=== PATIENT | female | born 1950 | race Caucasian/White ===

== ENCOUNTER 2019-06-24 09:23 | Inpatient (IN) ==
--- OUTSIDE RECORDS SUMMARY | 2019-06-24 09:26 | External Medical Summary | Continuity of Care Document ---
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 Refills: 0 traMADol HCl - 50 MG Oral Tablet , M.DRobby Start: 11-Mar-2012 Refills: 0 Myrbetriq 50 MG Oral Tablet Extended Release 24 Hour; Take 1 tablet daily Martha Webb Start: 03-Aug-2016 Quantity: 90 Refills: 3 amLODIPine Besy-Benazepril HCl - 5-20 MG Oral Capsule , M.DRobby Refills: 0 Zolpidem Tartrate 10 MG Oral Tablet , M.D. Refills: 0 Latanoprost 0.005 % Ophthalmic Solution , M.D. Refills: 0 Procedures History of Tonsillectomy Status: Complet ed History of Diagnostic Cystoscopy Status: Completed History of Hysterectomy Status: Complete d History of Dilation And Curettage Status : Completed Immunizations Immunizations not documented Family History Unknown Family Member Family history of Heart Disease (V17.49) Status: Active Comments: Family History Family history of Mother At Age ___ Status: Active Comments: Family History Family history of Hypertension (V17.49) Status: Active Comments: Family History Grandmother Family history of Hypertension (V17.49) Status: Active Father Family history of prostate cancer (V16.42) (Z80.42) Status: Active Mother Family history of malignant neoplasm of breast (V16.3) (Z80. 3) Status: Active Social History - Smoking Status Former smoker Never smoker Plan of Treatment Planned Observations Planned Goals not documented Results No Known Results Results not documented
[2019-06-24] MEDS ORDERED: SODIUM CHLORIDE 0.9% 500 ML IV SCH (09:45)
[2019-06-24 10:11] LABS: Hematocrit (blood only) 19.3 % (37-47); Hemoglobin 5.2 g/dL (12.0-16.0); Mean Corpuscular Hemoglobin 15.8 pg (25-34); Mean Corpuscular Hgb Conc 26.9 g/dL (32-36); Mean Corpuscular Volume 58.7 fL (80-100); Mean Platelet Volume 8.8 fL (7.4-10.4); Partial Thromboplastin Ratio 0.8; Partial Thromboplastin Time 21.1 Seconds (21.0-31.0); Platelet Count 269 K/uL (130-400); Prothrombin Time 10.4 Seconds (9.0-12.0); RDW Coefficient of Variation 18.2 % (11.5-14.5); RDW Standard Deviation 39.3 fL (36.4-46.3); Red Blood Count 3.29 M/uL (4.2-5.4); White Blood Count 5.51 K/uL (4.8-10.8)
[2019-06-24 10:18] LABS: Albumin Level 3.2 gm/dl (3.4-5.0); Bilirubin Direct < 0.1 mg/dl (0-0.2); Blood Urea Nitrogen 10 mg/dl (7-18); Carbon Dioxide 25 mmol/L (21-32); Chloride 106 mmol/L (98-107); Glucose 113 mg/dl (70-99); Lipase 133 U/L (73-393); Potassium 3.9 mmol/L (3.5-5.1); Sodium 137 mmol/L (136-145)
[2019-06-24 10:19] LABS: Alanine Aminotransferase 24 U/L (12-78); Aspartate Aminotransferase 24 U/L (15-37); BUN Creatinine Ratio 12.1 (10-20); Creatinine Clr Calc Pharmacy 52.8 ml/min; Est GFR (African American) 85.3; Est GFR (Non-African American) 73.6
[2019-06-24 10:21] LABS: Basophils # (auto) 0.02 K/uL (0-0.2); Basophils % (auto) 0.4 %; Eosinophils # (auto) 0.09 K/uL (0-0.5); Eosinophils % (auto) 1.6 %; Hypochromasia Present; Immature Granulocytes # (auto) 0.01 K/uL (0.00-0.02); Immature Granulocytes % (auto) 0.2 %; Lymphocytes # (auto) 1.01 K/uL (1.2-3.4); Lymphocytes % (auto) 18.3 %; Microcytosis Present; Monocytes # (auto) 0.44 K/uL (0.11-0.59); Neutrophils # (auto) 3.94 K/uL (1.4-6.5); Neutrophils % (auto) 71.5 %
[2019-06-24 10:22] LABS: Alkaline Phosphatase 105 U/L (45-117); Bilirubin,Total 0.3 mg/dl (0.2-1); Total Protein 6.1 gm/dl (6.4-8.2)
[2019-06-24] MEDS ORDERED: SODIUM CHLORIDE 0.9% 250 ML IV PRN (10:29)
--- NOTE | 2019-06-24 10:40 | History & Physical Report ---
Date of Service June 24, 2019 Assessment & Plan (1) Anemia: - Admit to PCU - Hgb = 5.2, Hct= 19.3, MCV = 58.7, MHC= 15.8, and MCHC= 26.9 - will check iron studies including ferritin, transferrin sat, TIBC - Type and cross, blood consent obtained in the ER, plan to transfuse at least 2 U PRBCs now, recheck H&H at 1900 after transfusion - Possibly a gastritis from heavy NSAID use and alcohol use (using 6 naproxen tablets daily and drinking alcohol routinely with 4 beers 4x per week) - Gi consult, may require EGD with likely upper GIB - Start on protonix 40 mg IV BID - Last colonoscopy was 5-6 yrs ago, was done in [place] - No NSAIDs, will need further counseling on taking them appropriately at time of discharge. (2) Tachycardia: - Likely secondary to acute blood loss anemia - Monitor on tele - Follow serial troponins to ensure no cardiac changes, EKG appears tachycardic with PVCs - Murmer heard on exam, consider Echo after transfusion. (3) HTN (hypertension): - Continue amlodipine-benazepril daily (4) Alcohol use: - Cessation encouraged, continue multivitamin daily - Monitor for signs of withdrawal but unlikely with not drinking much due to recent URI. (5) Anxiety: - stable, uses zolpidem for sleep (6) Bilateral leg edema: - New onset - bilateral in ankles, no calf tenderness so not concerned for DVT - Monitor, possible venous insufficiency (7) DVT prophylaxis: -teds, no chemical ppx in the setting of GIB History of Present Illness Primary Care Provider: Fili Mendoza Mitchjd This is a 69 yo F with PMHx of HTN, anxiety, chronic cystitis, who presents from her PCPs office for findings of low hemoglobin of 5.5 on yesterday's outpatient labs. She reports had been sick with URI for about 3 weeks and had the typical sx including sore throat, headache, cough, fatigue and myalgias which she was treated with amoxicillin x 5 days. She started the abx about 1 wk ago, and within a few days developed a rash over her trunk which was very itchy. She reports being outside and working a lot in the past month, so thought her fatigue was due to this. She was seen by her PCP again yesterday where he did blood work to test for other causes and was found to have low hgb and was sent to the ER. She admits to having darker stools, but denies blood streaking, tarry stools, and BRBPR. Admits to fatigue and feeling short of breath when walking up a flight of stairs. Last colonoscopy was in [place] about 5-6 years ago and was normal per her report. She Pt admits to taking 6 naproxen tablets on a daily basis due to muscle aches and pains, and I confirmed that she does not mean ibuprofen. She also notes that she typically drinks 4 beers at a time, 4x per week, but has been a little less in the past 3 weeks due to not feeling quite up to par. She lives at home alone independently. Hgb = 5.2, Hct= 19.3, MCV = 58.7, MHC= 15.8, and MCHC= 26.9 Allergies Allergy/AdvReac Type Severity Reaction Status Date / Time Cipro Allergy Unknown itching Verified 11/25/14 06:09 ciprofloxacin Allergy Unknown itching Verified 06/24/19 11:23 Home Medications Home Medications Medication Instructions Recorded Confirmed Type amlodipine-benazepril 1 cap PO DAILY 06/24/19 06/24/19 History latanoprost 1 drp OPB DAILY 06/24/19 06/24/19 History kexpcckk-hcju-VH-calcium-mins 1 tab PO DAILY 06/24/19 06/24/19 History [Daily Multiple For Women] naproxen sodium [Aleve] 220 mg PO DAILY 06/24/19 06/24/19 History tramadol 50 mg PO Q6H 06/24/19 06/24/19 History zolpidem 10 mg PO HS 06/24/19 06/24/19 History Past Med/Surg History Medical History UTI (urinary tract infection) Family History Other Family history non-contributory Social History Preferred Language: Italian Communication Ability: Effective Local [employer] Required: No Beliefs That Will Affect Care: None Current Living Situation: Alone Other Information That Helps Us Care for You: No Feels Safe at Home: Yes Safety Concerns: Feels Safe At This Time Smoking Status: Never smoker Do You Dip or Chew Tobacco: No ; Second Hand Exposure: No ; Tobacco Cessation Education Requested by Patient: No Hx Alcohol Use: Yes Hx Substance Use: No Review of Systems Review of Systems: Constitutional: No fever, sweats or chills, + myalgia Eyes: No diplopia, no worsening or blurred vision ENT: normal hearing, no trouble swallowing Respiratory: No cough, sputum, dyspnea at rest or on exertion Cardiovascular: No chest pain, tightness or palpitations Abdomen: No pain, nausea, vomiting. + darkened stools, no BRBPR, no diarrhea or constipation Musculoskeletal: + diffuse joint pain, + new onset lower extremity swelling, no calf pain Neurologic: No weakness, numbness/tingling, or balance problems Psychiatric: + hx of anxiety or depression Skin: No rash, itch resolved since stopping antibiotic Physical Exam Physical Exam: General: awake, alert, no apparent distress Head: Normocephalic, atraumatic ENT: PERRL, EOMI, no pharyngeal exudate, mucous membranes moist Chest: Clear to auscultation, on room air, no adventitious breath sounds Cardiac: +tachycardic with PVCs, +TORSTEN, no JVD, normal peripheral pulses, good capillary refill Abdominal: NABS x 4 quadrants, soft, nontender to palpation, no rebound, guarding or tenderness Extremities: Normal inspection, + peripheral edema nonpitting in ankles bilaterally, no erythema, calfs nontender to palpation Psych: Normal mood and affect Skin: no rash Neuro: AAO x 3, no motor deficits, speech is clear, no peripheral sensory deficits Results & Data Vital Signs (Past 12 Hours) Vital Signs Temp Pulse Pulse Resp BP BP Pulse Ox 06/24/19 10:00 104 H 17 139/76 98 06/24/19 09:26 37.0 C 125 H 20 145/69 H 99 Diagnostic Findings 24-JUN-2019 09:55:45 [facility]-EDSTAT ROUTINE RETRIEVAL Sinus tachycardia with frequent Premature ventricular complexes Otherwise normal ECG When compared with ECG of 15-OCT-2014 12:06, Premature ventricular complexes are now Present 25mm/s 10mm/mV 150Hz 9.0.9 12SL 241 SUNDAY: 11 Referred by: Fili Salinas Unconfirmed Vent. rate 102 BPM VT interval 138 ms QRS duration 72 ms QT/QTc 330/430 ms P-R-T axes 48 13 40 Code Status & VTE Plan Code Status Full code - discussed with pt and friend at bedside Supervising Physician Co-Signing Physician Notes Patient seen and examined, chart reviewed, case discussed with MARY ANN Bernard and I agree with her assessment and plan as documented above. Briefly patient is a 69-year-old female with history of anxiety, hypertension, frequent alcohol use presenting with symptomatic anemia. Was seen by her PCP and had routine blood work performed which revealed a low hemoglobin of 5.5. Patient denies melena/hematochezia/hematuria. Denies bleeding gums/bruising and vaginal bleeding. She is taking high doses of Aleve daily. On exam she is afebrile, regular tachycardia at 107 bpm with frequent PVCs, no respiratory distress saturating 100% on room air General: Pleasant, no acute distress, nontoxic in appearance Skin: + Pallor, no rashes/lesions HEENT: Normocephalic atraumatic, pupils equal round reactive to light, conjunctival pallor, neck supple, moist oral mucosa with pallor Heart: S1-S2 present, regular, tachycardic at 107 bpm with frequent PVCs, 3/6 systolic ejection murmur across the precordium Lungs: CTA Abdomen: + Bowel sounds soft, nontender/nondistended, no epigastric discomfort Extremities: Warm, well-perfused, 2+ pulses, + edema Rectal exam as performed by ER attendingnegative Labs and images reviewed. Significant for microcytic hypochromic anemia with hemoglobin = 5.2, hematocrit = 19.3, MCV = 58.7, MCH = 15.8 1+ blood on UA Assessment/plan: 69-year-old female presenting with symptomatic microcytic anemia. No overt source of blood loss identified. At this point suspect low blood loss most likely from an upper GI source in the setting of alcohol use and Aleve. -Iron studies requested in the ER as well as peripheral smear prior to transfusion -Patient to be transfused 2 units PRBCs -Repeat hemoglobin at 1900 -Protonix 40 mg IV twice daily -GI consult for possible EGD -Remainder of plan as above PG Care Time/CCT Total # of Minutes Spent Total Time Spent with Patient: Total time spent is greater than 50% in coordination of care (as documented) at patient's floor/unit and/or counseling patient:
[2019-06-24 10:50] LABS: Appearance Urine Clear (Clear); Bacteria Urine Automated Negative (Negative); Bilirubin Urine Negative (Negative); Blood Urine 1+ (Negative); Color Urine Yellow; Epithelial Cell Urine Auto 20-30 /lpf (0-5); Glucose Urine UA Negative (Negative); Ketones Urine Negative (Negative); Leukocyte Esterase Urine 1+ (Negative); Nitrite Urine Negative (Negative); Protein Urine Negative (Negative); Specific Gravity Urine 1.016 (1.000-1.030); Urobilinogen Urine Negative (Negative); WBC Urine Automated >30 /hpf (0-5); pH Urine 6.5 (4.5-7.5)
[2019-06-24 10:57] LABS: Reticulocyte % 1.7 % (0.5-2.0); Reticulocytes # 0.06 10^6/uL (0.02-0.10)
[2019-06-24] MEDS ORDERED: PANTOprazole 40 MG in SYRINGE 0 ML IV SCH (11:30)
[2019-06-24 11:36] LABS: Total Iron Binding Capacity 451 mcg/dl (250-450); Transferrin 340 mg/dl (200-360)
[2019-06-24 12:14] LABS: Ferritin 2.4 ng/ml (8-388); Iron 10 mcg/dl (35-150); Transferrin Percent Saturation 2 % (15-50)
[2019-06-24] MEDS ORDERED: ACETAMINOPHEN 325 MG TAB PO PRN (13:18)
[2019-06-24 14:35] LABS: T3 Free 4.39 pg/ml (2.3-4.2); T4 Thyroxine 8.1 mcg/dl (4.5-10.9)
[2019-06-24 14:36] LABS: Lyme Ab IgG w/WB Rflx Negative (Negative)
[2019-06-24 14:38] LABS: Lyme Ab IgM w/WB Rflx Negative (Negative)
--- NOTE | 2019-06-24 14:39 | Emergency Department Note ---
Entered by Ga Russo acting as a scribe for Chemo Crooks History of Present Illness General Chief complaint: Abnormal Labs/Diagnostic Testing Stated complaint: doc ref. low blood count Time Seen by Provider: 06/24/19 09:30 Source: patient History of Present Illness Provider complaint: Abnormal labs Onset (ago): day(s) 1 Location: head Pain Consistency: + constant Relieved By: + none Exacerbated By: + none Associated symptoms: + denies other symptoms (Urinary symptoms, abdominal pain, hematochezia, melena) and + other (Fatigue) The patient is a 69 year old female who presents to the Emergency Room after having abnormal labs drawn in [place] yesterday. The patient states she had the blood drawn yesterday but was just notified this morning with the results. Her labs showed that she was anemic with her hemoglobin around 5, but the patient notes she does not remember the exact number. The patient mentioned that she had just gotten over an upper respiratory infection but has been otherwise healthy. The patient reports feeling excessively fatigued and tired but denies any hematochezia, melena, abdominal pain, or urinary symptoms. Home Medications Home Medications Medication Instructions Recorded Confirmed Type amlodipine-benazepril 1 cap PO DAILY 06/24/19 06/24/19 History latanoprost 1 drp OPB DAILY 06/24/19 06/24/19 History jfddbapn-xetw-ZJ-calcium-mins 1 tab PO DAILY 06/24/19 06/24/19 History [Daily Multiple For Women] naproxen sodium [Aleve] 220 mg PO DAILY 06/24/19 06/24/19 History tramadol 50 mg PO Q6H 06/24/19 06/24/19 History zolpidem 10 mg PO HS 06/24/19 06/24/19 History Allergies Allergy/AdvReac Type Severity Reaction Status Date / Time Cipro Allergy Unknown itching Verified 11/25/14 06:09 ciprofloxacin Allergy Unknown itching Verified 06/24/19 11:23 Past Med/Surg History Medical History UTI (urinary tract infection) Family History Other Family history non-contributory Social History Preferred Language: Turkish Communication Ability: Effective Possum Trapper Required: No Beliefs That Will Affect Care: None Current Living Situation: Alone Other Information That Helps Us Care for You: No Feels Safe at Home: Yes Safety Concerns: Feels Safe At This Time Smoking Status: Never smoker Do You Dip or Chew Tobacco: No ; Second Hand Exposure: No ; Tobacco Cessation Education Requested by Patient: No Hx Alcohol Use: Yes Hx Substance Use: No Review of Systems See HPI for pertinent positives & negatives. and A total of 10 systems reviewed and were otherwise negative Physical Exam Vital Signs Vital Signs - 24 hr 06/24/19 09:26 06/24/19 10:00 06/24/19 10:40 Temperature 37.0 C Temperature Source Oral Sepsis Recent Fever Within 48 Hours No Sepsis New/Unexplained Change in Mental Status No Sepsis Action Taken by Nursing No Action Required Pulse Rate 125 H Pulse Rate [Apical] 104 H 105 H Pulse Rate from SpO2 Sensor Pulse Rhythm Regular Pulse Rhythm [Apical] Irregular Irregular Pulse Strength Normal Respiratory Rate 20 17 18 Respiratory Effort / Characteristics Non-Labored Spontaneous Non-Labored Non-Labored Respiratory Depth Normal Normal Normal Respiratory Pattern Regular Regular Regular Blood Pressure 145/69 H Blood Pressure [Left Arm] 139/76 140/81 Blood Pressure Mean 94 Blood Pressure Mean [Left Arm] 97 100 Blood Pressure Position Sitting Blood Pressure Position [Left Arm] Sitting Sitting Pulse Oximetry 99 98 100 Oxygen Delivery Method Room Air Room Air Room Air 06/24/19 11:08 06/24/19 11:09 Temperature 37.1 C Temperature Source Oral Sepsis Recent Fever Within 48 Hours Sepsis New/Unexplained Change in Mental Status Sepsis Action Taken by Nursing Pulse Rate 104 H 103 H Pulse Rate [Apical] Pulse Rate from SpO2 Sensor 105 H Pulse Rhythm Regular Pulse Rhythm [Apical] Pulse Strength Respiratory Rate 19 20 Respiratory Effort / Characteristics Respiratory Depth Respiratory Pattern Blood Pressure 141/66 H 141/66 H Blood Pressure [Left Arm] Blood Pressure Mean 91 91 Blood Pressure Mean [Left Arm] Blood Pressure Position Blood Pressure Position [Left Arm] Pulse Oximetry 99 100 Oxygen Delivery Method Room Air GENERAL: She is oriented to person, place, and time. She appears well-developed and well-nourished. She does not appear distressed. HENT: Exam performed. Head: Normocephalic and atraumatic. Right Ear: External ear normal. No mastoid tenderness. Left Ear: External ear normal. No mastoid tenderness. Mouth/Throat: The oropharynx is clear and moist. No trismus in the jaw. No dental abscesses or uvula swelling. No oropharyngeal exudate or tonsillar abscesses. EYES: Conjunctivae and EOM are normal. Pupils are equal, round, and reactive to light. Right eye exhibits no discharge. Left eye exhibits no discharge. No scleral icterus. NECK: Normal range of motion. Neck supple. No JVD present. No spinous process tenderness present. No carotid bruit present. No rigidity. No tracheal deviation and normal range of motion present. No Brudzinski's sign and no Kernig's sign noted. CV: Normal rate, regular rhythm, normal heart sounds and intact distal pulses. There is no peripheral edema. Palpable radial pulses bue. PULM/CHEST: Effort normal and breath sounds normal. No respiratory distress. No stridor. She has no wheezes. She has no rales. Chest Wall: She exhibits no tenderness. ABD: The abdomen is soft. Bowel sounds are normal. She has no distension. No mass is present. There is no tenderness. There is no rebound, no guarding, no Savage's sign and no tenderness at McBurney's point. Rovsig negative RECTAL: Heme negative. MUSC/SKEL: Normal range of motion. There is no peripheral edema, tenderness or deformity. LYMPH: No cervical adenopathy. NEURO: She is alert and oriented to person, place, and time. She has normal s trength. No cranial nerve deficit or sensory deficit. Coordination and gait normal. GCS eye subscore is 4. GCS verbal subscore is 5. GCS motor subscore is 6. cerbellar tests wnl. SKIN: Pale. Skin is warm and dry. She is not diaphoretic. PSYCH: She has a normal mood and affect. Her behavior is normal. Judgment and thought content normal. Course 0939: Past medical records reviewed. The patient was evaluated in room B10, and a complete history and physical examination were performed. 1030: The patient's labs show a hemoglobin of 5.2 and her rectal exam is heme negative. The patient agreed to a blood transfusion and to stay in the hospital. I spoke to Dr. Gonzalez - [facility] Hospitalist about the patient's case. She is going to accept the patient for further evaluation. Consultations Consultation #1: I spoke to Dr. Gonzalez - [facility] Hospitalist about the patient's case. She is going to accept the patient for further evaluation. Time: 10:30 Administered Medications Discontinued Medications Sodium Chloride (Nss) 500 mls @ 125 mls/hr IV .Q4H LISA Stop: 07/24/19 09:44 Last Infusion: 06/24/19 13:28 Dose: 0 mls/hr Documented by: [id number] Admin: 06/24/19 10:03 Dose: 125 mls/hr Documented by: [id number] Pantoprazole Sodium 40 mg/ (Syringe) 10 mls @ 5 mls/min IV 1130 LISA Stop: 06/24/19 13:00 Last Admin: 06/24/19 12:14 Dose: 5 mls/min Documented by: [id number] Medical Decision Making Medical Records Attestation: I reviewed the patient's medical records. Home Medications Current Medication List: was personally reviewed by me Laboratory Data Attestation: I reviewed the patient's lab results. Result diagrams: 06/24/19 09:52 06/24/19 09:52 Lab Results 06/24/19 06/24/19 06/24/19 Range/Units 09:52 09:52 09:52 WBC 5.51 (4.8-10.8) K/uL RBC 3.29 L (4.2-5.4) M/uL Hgb 5.2 L* (12.0-16.0) g/dL Hct 19.3 L* (37-47) % MCV 58.7 L (80-100) fL MCH 15.8 L (25-34) pg MCHC 26.9 L (32-36) g/dL RDW Std Deviation 39.3 (36.4-46.3) fL RDW Coeff of Olivier 18.2 H (11.5-14.5) % Plt Count 269 (130-400) K/uL MPV 8.8 (7.4-10.4) fL Immature Gran % (Auto) 0.2 % Neut % (Auto) 71.5 % Lymph % (Auto) 18.3 % [place] % (Auto) 8.0 % Eos % (Auto) 1.6 % Baso % (Auto) 0.4 % Reticulocyte % (Auto) 1.7 (0.5-2.0) % Immature Gran # (Auto) 0.01 (0.00-0.02) K/uL Neut # (Auto) 3.94 (1.4-6.5) K/uL Lymph # (Auto) 1.01 L (1.2-3.4) K/uL [place] # (Auto) 0.44 (0.11-0.59) K/uL Eos # (Auto) 0.09 (0-0.5) K/uL Baso # (Auto) 0.02 (0-0.2) K/uL Reticulocyte # 0.06 (0.02-0.10) 10^6/uL Hypochromasia Present Microcytosis Present Peripher Smr Path Cons PT 10.4 (9.0-12.0) Seconds INR 1.0 (0.9-1.1) APTT 21.1 (21.0-31.0) Seconds PTT Ratio 0.8 Sodium (136-145) mmol/L Potassium (3.5-5.1) mmol/L Chloride (98-107) mmol/L Carbon Dioxide (21-32) mmol/L Anion Gap (3-11) BUN (7-18) mg/dl Creatinine (0.6-1.2) mg/dl Est Cr Clr Drug Dosing ml/min Est GFR ( Amer) Est GFR (Non-Af Amer) BUN/Creatinine Ratio (10-20) Glucose (70-99) mg/dl Calcium (8.5-10.1) mg/dl Magnesium (1.8-2.4) mg/dl Iron (35-150) mcg/dl TIBC (250-450) mcg/dl Transferrin (200-360) mg/dl Transferrin % Sat (15-50) % Ferritin (8-388) ng/ml Total Bilirubin (0.2-1) mg/dl Direct Bilirubin (0-0.2) mg/dl AST (15-37) U/L ALT (12-78) U/L Alkaline Phosphatase (45-117) U/L Total Protein (6.4-8.2) gm/dl Albumin (3.4-5.0) gm/dl Lipase (73-393) U/L TSH (0.300-4.500) uIu/ml Urine Color Urine Appearance (Clear) Urine pH (4.5-7.5) Ur Specific [place] (1.000-1.030) Urine Protein (Negative) Urine Glucose (UA) (Negative) Urine Ketones (Negative) Urine Blood (Negative) Urine Nitrite (Negative) Urine Bilirubin (Negative) Urine Urobilinogen (Negative) Ur Leukocyte Esterase (Negative) Urine WBC (Auto) (0-5) /hpf Urine RBC (Auto) (0-4) /hpf U Hyaline Cast (Auto) (0-5) /lpf U Epithel Cells (Auto) (0-5) /lpf Urine Bacteria (Auto) (Negative) POC Stool Occult Blood (Negative) Blood Type B Positive Antibody Screen NEGATIVE Crossmatch See Detail 06/24/19 06/24/19 06/24/19 Range/Units 09:52 09:52 09:52 WBC (4.8-10.8) K/uL RBC (4.2-5.4) M/uL Hgb (12.0-16.0) g/dL Hct (37-47) % MCV (80-100) fL MCH (25-34) pg MCHC (32-36) g/dL RDW Std Deviation (36.4-46.3) fL RDW Coeff of Olivier (11.5-14.5) % Plt Count (130-400) K/uL MPV (7.4-10.4) fL Immature Gran % (Auto) % Neut % (Auto) % Lymph % (Auto) % [place] % (Auto) % Eos % (Auto) % Baso % (Auto) % Reticulocyte % (Auto) (0.5-2.0) % Immature Gran # (Auto) (0.00-0.02) K/uL Neut # (Auto) (1.4-6.5) K/uL Lymph # (Auto) (1.2-3.4) K/uL [place] # (Auto) (0.11-0.59) K/uL Eos # (Auto) (0-0.5) K/uL Baso # (Auto) (0-0.2) K/uL Reticulocyte # (0.02-0.10) 10^6/uL Hypochromasia Microcytosis Peripher Smr Path Cons PT (9.0-12.0) Seconds INR (0.9-1.1) APTT (21.0-31.0) Seconds PTT Ratio Sodium 137 (136-145) mmol/L Potassium 3.9 (3.5-5.1) mmol/L Chloride 106 (98-107) mmol/L Carbon Dioxide 25 (21-32) mmol/L Anion Gap 6.0 (3-11) BUN 10 (7-18) mg/dl Creatinine 0.81 (0.6-1.2) mg/dl Est Cr Clr Drug Dosing 52.8 ml/min Est GFR ( Amer) 85.3 Est GFR (Non-Af Amer) 73.6 BUN/Creatinine Ratio 12.1 (10-20) Glucose 113 H (70-99) mg/dl Calcium 9.0 (8.5-10.1) mg/dl Magnesium 2.0 Cancelled (1.8-2.4) mg/dl Iron 10 L Cancelled (35-150) mcg/dl TIBC 451 H Cancelled (250-450) mcg/dl Transferrin 340 Cancelled (200-360) mg/dl Transferrin % Sat 2 L Cancelled (15-50) % Ferritin 2.4 L Cancelled (8-388) ng/ml Total Bilirubin 0.3 (0.2-1) mg/dl Direct Bilirubin < 0.1 (0-0.2) mg/dl AST 24 (15-37) U/L ALT 24 (12-78) U/L Alkaline Phosphatase 105 (45-117) U/L Total Protein 6.1 L (6.4-8.2) gm/dl Albumin 3.2 L (3.4-5.0) gm/dl Lipase 133 (73-393) U/L TSH (0.300-4.500) uIu/ml Urine Color Urine Appearance (Clear) Urine pH (4.5-7.5) Ur Specific [place] (1.000-1.030) Urine Protein (Negative) Urine Glucose (UA) (Negative) Urine Ketones (Negative) Urine Blood (Negative) Urine Nitrite (Negative) Urine Bilirubin (Negative) Urine Urobilinogen (Negative) Ur Leukocyte Esterase (Negative) Urine WBC (Auto) (0-5) /hpf Urine RBC (Auto) (0-4) /hpf U Hyaline Cast (Auto) (0-5) /lpf U Epithel Cells (Auto) (0-5) /lpf Urine Bacteria (Auto) (Negative) POC Stool Occult Blood (Negative) Blood Type Antibody Screen Crossmatch 06/24/19 06/24/19 06/24/19 Range/Units 09:52 10:30 10:30 WBC (4.8-10.8) K/uL RBC (4.2-5.4) M/uL Hgb (12.0-16.0) g/dL Hct (37-47) % MCV (80-100) fL MCH (25-34) pg MCHC (32-36) g/dL RDW Std Deviation (36.4-46.3) fL RDW Coeff of Olivier (11.5-14.5) % Plt Count (130-400) K/uL MPV (7.4-10.4) fL Immature Gran % (Auto) % Neut % (Auto) % Lymph % (Auto) % [place] % (Auto) % Eos % (Auto) % Baso % (Auto) % Reticulocyte % (Auto) (0.5-2.0) % Immature Gran # (Auto) (0.00-0.02) K/uL Neut # (Auto) (1.4-6.5) K/uL Lymph # (Auto) (1.2-3.4) K/uL [place] # (Auto) (0.11-0.59) K/uL Eos # (Auto) (0-0.5) K/uL Baso # (Auto) (0-0.2) K/uL Reticulocyte # (0.02-0.10) 10^6/uL Hypochromasia Microcytosis Peripher Smr Path Cons PT (9.0-12.0) Seconds INR (0.9-1.1) APTT (21.0-31.0) Seconds PTT Ratio Sodium (136-145) mmol/L Potassium (3.5-5.1) mmol/L Chloride (98-107) mmol/L Carbon Dioxide (21-32) mmol/L Anion Gap (3-11) BUN (7-18) mg/dl Creatinine (0.6-1.2) mg/dl Est Cr Clr Drug Dosing ml/min Est GFR ( Amer) Est GFR (Non-Af Amer) BUN/Creatinine Ratio (10-20) Glucose (70-99) mg/dl Calcium (8.5-10.1) mg/dl Magnesium (1.8-2.4) mg/dl Iron (35-150) mcg/dl TIBC (250-450) mcg/dl Transferrin (200-360) mg/dl Transferrin % Sat (15-50) % Ferritin (8-388) ng/ml Total Bilirubin (0.2-1) mg/dl Direct Bilirubin (0-0.2) mg/dl AST (15-37) U/L ALT (12-78) U/L Alkaline Phosphatase (45-117) U/L Total Protein (6.4-8.2) gm/dl Albumin (3.4-5.0) gm/dl Lipase (73-393) U/L TSH < 0.005 L (0.300-4.500) uIu/ml Urine Color Yellow Urine Appearance Clear (Clear) Urine pH 6.5 (4.5-7.5) Ur Specific [place] 1.016 (1.000-1.030) Urine Protein Negative (Negative) Urine Glucose (UA) Negative (Negative) Urine Ketones Negative (Negative) Urine Blood 1+ H (Negative) Urine Nitrite Negative (Negative) Urine Bilirubin Negative (Negative) Urine Urobilinogen Negative (Negative) Ur Leukocyte Esterase 1+ H (Negative) Urine WBC (Auto) >30 H (0-5) /hpf Urine RBC (Auto) 10-30 H (0-4) /hpf U Hyaline Cast (Auto) 1-5 (0-5) /lpf U Epithel Cells (Auto) 20-30 H (0-5) /lpf Urine Bacteria (Auto) Negative (Negative) POC Stool Occult Blood Negative (Negative) Blood Type Antibody Screen Crossmatch ECG Data Attestation: I personally reviewed and interpreted this ECG as follows: Indication: other (Abnormal labs) Rate (beats per minute): 102 Rhythm: sinus tachycardia Findings: + other (TN, QRS, and QTC intervals WNL) and + PVC; no ST depression, no ST elevation and no acute ischemic change Blood Pressure Blood Pressure Findings: Elevated blood pressure Blood Pressure Disposition: Referred to patients primary care provider MDM Narrative The patient's labs show a hemoglobin of 5.2 and her rectal exam is heme negative. The patient agreed to a blood transfusion and to stay in the hospital. I spoke to Dr. Gonzalez - [facility] Hospitalist about the patient's case. She is going to accept the patient for further evaluation. Impression & Plan Anemia Critical Care Time Critical Care Time: Yes Total Critical Care Time: 35 I have personally spent greater than 35 minutes of critical care time in the di rect management of this patient. This includes bedside care, interpretation of diagnostic studies, and testing, discussion with consultants, patient, and family members, and other required patient management activities. This 35 minutes is in excess of all separately billable procedures. Discharge Plan Visit Data *Final* Discharge Date/Time: 06/24/19 12:37 Chief Complaint: Abnormal Labs/Diagnostic Testing Stated Complaint: doc ref. low blood count ED Provider: Chemo Crooks Discharge Problem: Anemia Patient Disposition: Admitted As Inpatient Discharge Instructions Interventions: ED Discharge Assessment Last Done: 06/24/19 12:37 The scribe's documentation has been prepared under my direction and personally reviewed by me in its entirety. I confirm that the note above accurately reflects all work, treatment, procedures, and medical decision making performed by me.
--- NOTE | 2019-06-24 14:54 | Gastrointestinal Consultation ---
Date of Consultation June 24, 2019 Assessment & Plan (1) Anemia: suspect possible slow UGI from PUD given NSAIDs vs. severe gastritis vs. less likely AVM. keep NPO Proceed with EGD to further evaluate risks/benefits and procedure discussed with patient, who agrees to proceed Thank you for allowing me to participate in the care of this patient. History of Present Illness Attending Physician: Shari Gonzalez, DO 69 yo female with hx HTN who is here for anemia. She was sent in with hgb of 5.2. She notes her stools have been darker than usual lately and that for the last month she has been taking significant amounts of NSAIDS, specifically aleve for muscle aches. She denies abd pains, n/v, hematemesis, hematochezia, diarrhea, fevers, chills, sweats. She has had a colonoscopy 5 years ago which was unremarkable, no prior EGD. Labs reviewed, hgb 5.2. VSS. She has received 1 unit PRBC here. BUN wnl. No imaging available for review. Allergies Allergy/AdvReac Type Severity Reaction Status Date / Time Cipro Allergy Unknown itching Verified 11/25/14 06:09 ciprofloxacin Allergy Unknown itching Verified 06/24/19 11:23 Home Medications Home Medications Medication Instructions Recorded Confirmed Type amlodipine-benazepril 1 cap PO DAILY 06/24/19 06/24/19 History latanoprost 1 drp OPB DAILY 06/24/19 06/24/19 History gbaervnk-dvqm-UL-calcium-mins 1 tab PO DAILY 06/24/19 06/24/19 History [Daily Multiple For Women] naproxen sodium [Aleve] 220 mg PO DAILY 06/24/19 06/24/19 History tramadol 50 mg PO Q6H 06/24/19 06/24/19 History zolpidem 10 mg PO HS 06/24/19 06/24/19 History Patient History Medical History UTI (urinary tract infection) Family History Other Family history non-contributory Social History Preferred Language: Mongolian Communication Ability: Effective 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 Beliefs That Will Affect Care: None Current Living Situation: Alone Other Information That Helps Us Care for You: No Feels Safe at Home: Yes Safety Concerns: Feels Safe At This Time Smoking Status: Never smoker Do You Dip or Chew Tobacco: No ; Second Hand Exposure: No ; Tobacco Cessation Education Requested by Patient: No Hx Alcohol Use: Yes Hx Substance Use: No Review of Systems Constitutional: no fever, no chills and no weight loss Eyes: as per Subjective / HPI Ear, Nose, Mouth, Throat: as per Subjective / HPI Respiratory: no dyspnea and no dyspnea on exertion Cardiovascular: no chest pain and no palpitations Gastrointestinal: as per Subjective / HPI Musculoskeletal: no joint pain and no swelling Integumentary: no rash and no lesions Neurologic: no numbness and no paresthesia Psychiatric: no depression and no anxiety Endocrine: no fatigue Hematologic / Lymphatic: no easy bleeding and no easy bruising Physical Exam Constitutional: WD/WN, vitals as above Eyes: EOM intact bilaterally Neck: normal visual inspection Respiratory: normal respiratory effort, lungs clear to auscultation Cardiovascular: RRR, no murmur, no edema Gastrointestinal (Abdomen): Inspection/Auscultation: abdomen normal to inspection; abdomen not distended Percussion/Palpation: abdomen soft; abdomen nontender and no hepatosplenomegaly Musculoskeletal: Extremities: no cyanosis Gait: normal gait Skin: no rashes, warm and dry Neurologic: moves all extremities Psychiatric: A+Ox3, euthymic affect Results & Data Vital Signs (Past 12 Hours) Vital Signs Temp Pulse Pulse Resp BP BP Pulse Ox 06/24/19 13:13 37.2 C 96 H 18 137/74 98 06/24/19 13:00 112 H 06/24/19 12:55 37.2 C 109 H 18 161/67 H 100 06/24/19 12:37 101 H 17 160/81 H 100 06/24/19 12:15 101 H 17 160/81 H 100 06/24/19 12:13 37.5 C 101 H 17 160/81 H 100 06/24/19 11:46 106 H 22 139/78 99 06/24/19 11:43 37.1 C 107 H 20 139/78 100 06/24/19 11:30 101 H 16 139/84 100 06/24/19 11:28 37.1 C 102 H 16 139/84 99 06/24/19 11:09 103 H 20 141/66 H 100 06/24/19 11:08 37.1 C 104 H 19 141/66 H 99 06/24/19 10:40 105 H 18 140/81 100 06/24/19 10:00 104 H 17 139/76 98 06/24/19 09:26 37.0 C 125 H 20 145/69 H 99 PG Care Time/CCT Total # of Minutes Spent Total Time Spent with Patient: Total time spent is greater than 50% in coordination of care (as documented) at patient's floor/unit and/or counseling patient:
--- NOTE | 2019-06-24 15:35 | Anesthesiology Consultation ---
Date of Service June 24, 2019 Assessment & Plan (1) Encounter for pre-operative examination: Chart Review Chart Review: Acceptable Risk for Surgery and Patient NOT seen in Pre Admission Testing Consults Requested none History Surgery Operation Date: 06/24/19 10:00 Proposed Procedures p Esophagogastroduodenoscopy Dr. Aamir Rutledge MD Height/Weight Height: 5 ft Weight: 61.1 kg Allergies Allergy/AdvReac Type Severity Reaction Status Date / Time Cipro Allergy Unknown itching Verified 11/25/14 06:09 ciprofloxacin Allergy Unknown itching Verified 06/24/19 11:23 Medications Home Medications Medication Instructions Recorded Confirmed Last Taken amlodipine-benazepril 1 cap PO DAILY 06/24/19 06/24/19 Unknown latanoprost 1 drp OPB DAILY 06/24/19 06/24/19 Unknown yzwxvoqx-yfkd-IC-calcium-mins 1 tab PO DAILY 06/24/19 06/24/19 Unknown [Daily Multiple For Women] naproxen sodium [Aleve] 220 mg PO DAILY 06/24/19 06/24/19 06/20/19 tramadol 50 mg PO Q6H 06/24/19 06/24/19 06/24/19 zolpidem 10 mg PO HS 06/24/19 06/24/19 06/23/19 NPO Date Last Intake of Fluids: 06/24/19 Time Last Intake of Fluids: 14:00 Last Intake of Fluids Comment: ice chips Date Last Intake of Solids: 06/24/19 Time Last Intake of Solids: 08:30 Last Intake of Solids Comment: 2 pieces of toast and hot tea with milk Past Medical History Medical History UTI (urinary tract infection) Past Family History Family History Other Family history non-contributory Social History Smoking Status: Never smoker Do You Dip or Chew Tobacco: No Hx Alcohol Use: Yes alcohol intake frequency: a few times a week Hx Substance Use: No substance use type: does not use Physical Exam Vital Signs Last Vital Signs Temp 37 C 06/24/19 15:04 Pulse 98 H 06/24/19 15:04 Resp 20 06/24/19 15:04 BP 152/77 H 06/24/19 15:04 Pulse Ox 99 06/24/19 15:04 Testing Laboratory Results 06/24/19 09:52 06/24/19 09:52 PT 10.4 Seconds (9.0-12.0) 06/24/19 09:52 INR 1.0 (0.9-1.1) 06/24/19 09:52 APTT 21.1 Seconds (21.0-31.0) 06/24/19 09:52 Urine Color Yellow 06/24/19 10:30 Urine Appearance Clear (Clear) 06/24/19 10:30 Urine pH 6.5 (4.5-7.5) 06/24/19 10:30 Ur Specific [place] 1.016 (1.000-1.030) 06/24/19 10:30 Urine Protein Negative (Negative) 06/24/19 10:30 Urine Glucose (UA) Negative (Negative) 06/24/19 10:30 Urine Ketones Negative (Negative) 06/24/19 10:30 Urine Nitrite Negative (Negative) 06/24/19 10:30 Ur Leukocyte Esterase 1+ (Negative) H 06/24/19 10:30 Urine WBC (Auto) >30 /hpf (0-5) H 06/24/19 10:30 Urine RBC (Auto) 10-30 /hpf (0-4) H 06/24/19 10:30 U Hyaline Cast (Auto) 1-5 /lpf (0-5) 06/24/19 10:30 U Epithel Cells (Auto) 20-30 /lpf (0-5) H 06/24/19 10:30 Urine Bacteria (Auto) Negative (Negative) 06/24/19 10:30 Blood Type B Positive 06/24/19 09:52 Antibody Screen NEGATIVE 06/24/19 09:52
[2019-06-24] MEDS ORDERED: PROPOFOL IV EMULSION 10 MG/ML 20 ML VIAL IV ONE (15:40)
[2019-06-24] MEDS ORDERED: LIDOCAINE HCL 2% 2 ML VIAL/AMP(20MG/ML) INFIL ONE (15:40)
--- NOTE | 2019-06-24 15:59 | GI REPORT ---
Patient Name: Mayi Jenkins Procedure Date: 06/24/2019 3:24 PM Date of : 1950 Admit Type: Inpatient Age: 69 Gender: Female Attending MD: Eddie Rutledge MD Procedure: Upper GI endoscopy Providers: Eddie Rutledge MD Referring MD: Shari Lucio Do Indications: Unexplained iron deficiency anemia Medicines: Monitored Anesthesia Care Complications: No immediate complications. Estimated blood loss: None. Estimated Blood Loss: Estimated blood loss: none. Procedure: Pre-Anesthesia Assessment: - Prior Anticoagulants: The patient has taken ibuprofen, last dose was 1 day prior to procedure. - ASA Grade Assessment: II - A patient with mild systemic disease. After obtaining informed consent, the endoscope was passed under direct vision. Throughout the procedure, the patient's blood pressure, pulse, and oxygen saturations were monitored continuously. The Endoscope was introduced through the mouth, and advanced to the second part of duodenum. The upper GI endoscopy was accomplished with ease. The patient tolerated the procedure well. Findings: The examined esophagus was otherwise normal. There was a small hiatal hernia at the GE junction. The Z-line was regular. A few localized, non-bleeding erosions were found in the gastric antrum. There were no stigmata of recent bleeding. The duodenal bulb and second portion of the duodenum were normal. There is no endoscopic evidence of bleeding in the entire examined stomach. There is no endoscopic evidence of bleeding in the entire examined duodenum. Impression: - Normal esophagus. - Z-line regular. - Non-bleeding erosive gastropathy. - Normal duodenal bulb and second portion of the duodenum. - No specimens collected. Recommendation: - [facility] patient [facility]. - Advance diet as tolerated today. -check iron studies and labs for other etiologies of chronic anemia Eddie Rutledge MD 06/24/2019 3:59:14 PM This report has been signed electronically. Note Initiated On: 06/24/2019 3:24 PM Number of Addenda: 0 I attest to the content of the Intraoperative Record and orders documented therein, exceptions below {[id number]}
--- NOTE | 2019-06-24 17:12 | Anesthesiology Progress Note ---
Date of Service June 24, 2019 Anesthesia Post Procedure Vital Signs Vital Signs: Temp Pulse Pulse Resp BP BP Pulse Ox 06/24/19 16:27 93 H 20 137/77 99 06/24/19 16:12 102 H 20 141/79 H 98 06/24/19 15:58 110 H 16 135/73 98 06/24/19 15:04 37 C 98 H 20 152/77 H 99 06/24/19 13:13 37.2 C 96 H 18 137/74 98 06/24/19 13:00 112 H 06/24/19 12:55 37.2 C 109 H 18 161/67 H 100 06/24/19 12:37 101 H 17 160/81 H 100 06/24/19 12:15 101 H 17 160/81 H 100 06/24/19 12:13 37.5 C 101 H 17 160/81 H 100 06/24/19 11:46 106 H 22 139/78 99 06/24/19 11:43 37.1 C 107 H 20 139/78 100 06/24/19 11:30 101 H 16 139/84 100 06/24/19 11:28 37.1 C 102 H 16 139/84 99 06/24/19 11:09 103 H 20 141/66 H 100 06/24/19 11:08 37.1 C 104 H 19 141/66 H 99 06/24/19 10:40 105 H 18 140/81 100 06/24/19 10:00 104 H 17 139/76 98 06/24/19 09:26 37.0 C 125 H 20 145/69 H 99 Transfer of Care Handoff Completed per policy Notes Mental Status: alert / awake / arousable and participated in evaluation Patient Amnestic to Procedure: Yes Nausea / Vomiting: adequately controlled Pain: adequately controlled Airway Patency, RR, SpO2: stable & adequate BP & HR: stable & adequate Hydration State: stable & adequate Anesthetic Complications: no major complications apparent and Pt Satisfied with anesthetic care
[2019-06-24] MEDS: PANTOprazole 40 MG in SYRINGE 0 ML IV SCH (20:30)
[2019-06-24] MEDS ORDERED: ZOLPIDEM TARTRATE 10 MG TAB PO SCH (21:00)
[2019-06-24 22:22] LABS: Hematocrit (blood only) 26.8 % (37-47); Hemoglobin 7.7 g/dL (12.0-16.0)
[2019-06-25 06:40] LABS: Hematocrit (blood only) 26.7 % (37-47); Hemoglobin 7.9 g/dL (12.0-16.0); Mean Corpuscular Hemoglobin 19.3 pg (25-34); Mean Corpuscular Hgb Conc 29.6 g/dL (32-36); Mean Corpuscular Volume 65.1 fL (80-100); Mean Platelet Volume 9.5 fL (7.4-10.4); Platelet Count 235 K/uL (130-400); RDW Coefficient of Variation 24.9 % (11.5-14.5); RDW Standard Deviation 57.6 fL (36.4-46.3)
[2019-06-25 07:14] LABS: Albumin Level 3.1 gm/dl (3.4-5.0); BUN Creatinine Ratio 10.5 (10-20); Calcium 8.7 mg/dl (8.5-10.1); Creatinine Clr Calc Pharmacy 49.5 ml/min; Est GFR (African American) 80.5; Est GFR (Non-African American) 69.4; Potassium 3.7 mmol/L (3.5-5.1)
[2019-06-25 07:41] LABS: Albumin Globulin Ratio 1.1 (0.9-2); Bilirubin,Total 0.8 mg/dl (0.2-1); Globulin 2.9 gm/dl (2.5-4.0)
[2019-06-25] MEDS: PANTOprazole 40 MG in SYRINGE 0 ML IV SCH (08:15)
[2019-06-25] MEDS ORDERED: MULTIVITAMIN TAB PO SCH (09:00)
[2019-06-25] MEDS ORDERED: ENALAPRIL MALEATE 10 MG TAB PO SCH (09:00)
[2019-06-25] MEDS ORDERED: AMLODIPINE BESYLATE 5 MG TAB PO SCH (09:00)
[2019-06-25] MEDS ORDERED: LATANOPROST 0.005% OP SOLN 2.5 ML BTL OPB SCH (09:00)
[2019-06-25] MEDS: POTASSIUM CHLORIDE 20 MEQ TABCR PO SCH ×2 (10:22→12:16)
[2019-06-25 11:59] LABS: Hematocrit (blood only) 29.2 % (37-47); Hemoglobin 8.5 g/dL (12.0-16.0)
--- NOTE | 2019-06-25 14:44 | Anesthesiology Progress Note ---
Date of Service June 25, 2019 Anesthesia Post Procedure Vital Signs Vital Signs: Temp Pulse Pulse Resp BP BP Pulse Ox 06/25/19 12:26 36.7 C 106 H 18 152/71 H 100 06/25/19 10:48 88 06/25/19 07:01 37.2 C 93 H 18 153/83 H 98 06/25/19 03:54 37.2 C 92 H 18 135/78 96 06/24/19 23:15 36.9 C 103 H 18 137/70 98 06/24/19 20:00 37.6 C H 95 H 16 145/77 H 97 06/24/19 19:06 37.6 C H 104 H 20 136/78 96 06/24/19 18:52 37.1 C 90 16 146/83 H 97 06/24/19 18:47 104 H 06/24/19 18:22 37.5 C 104 H 18 147/88 H 96 06/24/19 18:07 37.5 C 105 H 17 127/69 97 06/24/19 17:49 37.6 C H 111 H 17 148/75 H 99 06/24/19 16:37 37.2 C 101 H 18 144/80 H 99 06/24/19 16:27 93 H 20 137/77 99 06/24/19 16:12 102 H 20 141/79 H 98 06/24/19 15:58 110 H 16 135/73 98 06/24/19 15:04 37 C 98 H 20 152/77 H 99 Notes Mental Status: alert / awake / arousable and participated in evaluation Patient Amnestic to Procedure: Yes Nausea / Vomiting: adequately controlled Pain: adequately controlled Airway Patency, RR, SpO2: stable & adequate BP & HR: stable & adequate Hydration State: stable & adequate Anesthetic Complications: no major complications apparent
[2019-06-25 15:40] VITALS: BP 138/74; PULSE 100; TEMP 98.6; O2SAT 99
--- NOTE | 2019-06-25 15:56 | Discharge Summary ---
Date of Service June 25, 2019 Admission HPI Per Admitting Provider This is a 69 yo F with PMHx of HTN, anxiety, chronic cystitis, who presents from her PCPs office for findings of low hemoglobin of 5.5 on yesterday's outpatient labs. She reports had been sick with URI for about 3 weeks and had the typical sx including sore throat, headache, cough, fatigue and myalgias which she was treated with amoxicillin x 5 days. She started the abx about 1 wk ago, and within a few days developed a rash over her trunk which was very itchy. She reports being outside and working a lot in the past month, so thought her fatigue was due to this. She was seen by her PCP again yesterday where he did blood work to test for other causes and was found to have low hgb and was sent to the ER. She admits to having darker stools, but denies blood streaking, tarry stools, and BRBPR. Admits to fatigue and feeling short of breath when walking up a flight of stairs. Last colonoscopy was in [place] about 5-6 years ago and was normal per her report. She Pt admits to taking 6 naproxen tablets on a daily basis due to muscle aches and pains, and I confirmed that she does not mean ibuprofen. She also notes that she typically drinks 4 beers at a time, 4x per week, but has been a little less in the past 3 weeks due to not feeling quite up to par. She lives at home alone independently. Hgb = 5.2, Hct= 19.3, MCV = 58.7, MHC= 15.8, and MCHC= 26.9 Admission Exam Per Admitting Provider General: awake, alert, no apparent distress Head: Normocephalic, atraumatic ENT: PERRL, EOMI, no pharyngeal exudate, mucous membranes moist Chest: Clear to auscultation, on room air, no adventitious breath sounds Cardiac: +tachycardic with PVCs, +TORSTEN, no JVD, normal peripheral pulses, good capillary refill Abdominal: NABS x 4 quadrants, soft, nontender to palpation, no rebound, guarding or tenderness Extremities: Normal inspection, + peripheral edema nonpitting in ankles bilaterally, no erythema, calfs nontender to palpation Psych: Normal mood and affect Skin: no rash Neuro: AAO x 3, no motor deficits, speech is clear, no peripheral sensory deficits Principal Diagnosis Symptomatic anemia requiring blood transfusion Discharge Exam General: No acute distress HEENT: Normocephalic atraumatic Neck: No significant lymphadenopathy, trachea midline, normal to visual inspection Cardiac: Regular rate and rhythm, normal S1, normal S2, I did not appreciated any significant murmurs rubs or gallops, I did not appreciate any significant pedal edema, No calf tenderness, capillary refill is less than 3 seconds Respiratory: Clear to auscultation bilaterally with symmetrical chest rise, I did not appreciate any significant wheezes, rales, rhonchi, no increased work of breathing GI: Normal bowel sounds, soft, nontender in all 4 quadrants, nondistended MSK: No sensory or motor changes, moves all extremities without issue, extremities are warm and well-perfused Skin: [place], clean, dry, intact. Neuro: Alert and oriented x4 Psych: Calm, cooperative, logical thought process Discharge Data Allergies Allergy/AdvReac Type Severity Reaction Status Date / Time Cipro Allergy Unknown itching Verified 11/25/14 06:09 ciprofloxacin Allergy Unknown itching Verified 06/24/19 11:23 Consultations 06/24/19 10:31 ED Decision to Admit Stat 06/24/19 13:18 Consult Case Management - Discharge Planning Routine Consult Gastroenterology Routine Procedures Performed Operation Date: 06/24/19 10:00 Actual Procedures p Esophagogastroduodenoscopy - Eddie Rutledge MD Hospital Course (1) Anemia: #Anemia: Patient presented to the hospital from her PCPs office secondary to an outpatient hemoglobin level of 5.2. Patient reported an outpatient history of fatigue, potentially darker stools, negative light red blood per rectum, she did have a history of increased NSAID use taking up to 6 naproxen tabs daily and a significant alcohol history of 4 beers up to 4 times per week. Given the concern for an upper GI bleed gastroenterology was consulted and EGD was performed.EGD demonstrated nonbleeding erosive gastropathy and was otherwise normal. Patient was given 2 units of blood her hemoglobin increased to 7.7, and she was monitored overnight in the PCU. Patient did well overnight with no acute concerns or events, at noon the following day her hemoglobin was 8.5. Of note patient had an extremely low TSH and a slightly elevated T3, after review of literature there is some evidence suggesting that hyperthyroidism may induce altered iron metabolism and oxidative stress contributing to anemia, will defer further work-up and evaluation to outpatient PCP. Patient reported being completely asymptomatic and subsequently discharged with iron supplementation. She was counseled to avoid NSAIDs unless specifically directed by her primary care provider. Iron studies and reticulocyte count were obtained prior to discharge PCP to follow-up. -Begin iron supplementation, with Colace stool softener -PCP to follow-up iron studies and reticulocyte count -Patient may continue with p.o. antacids as needed for acid reflux #Tachycardia: Likely secondary to acute blood loss anemia, patient monitored on telemetry with no events. Serial troponins were negative, EKG demonstrated tachycardia with PVCs. Murmur appreciated can consider outpatient echo will defer management to outpatient PCP #Hyperthyroid Admissions labs demonstrated a TSH of less than 0.005Free T3 of 4.39 and T4 of 8.1 collectively this indicates a extremely mild hyperthyroidism. As stated above this may contribute to anemia. Will defer further work-up to outpatient physician as patient is not currently symptomatic from a hyperthyroid standpoint # HTN (hypertension): - Continue amlodipine-benazepril daily #Alcohol use: Patient reports drinking approximately 4 beers per day 4 days out of the week, cessation was encouraged and multivitamins provided. She does report a recent decrease in her alcohol consumption. She was monitored for signs and symptoms of withdrawal but did not display any of them except for anxiety. # Anxiety: - stable, uses zolpidem for sleep, outpatient PCP can consider discontinuing # DVT prophylaxis: -teds, no chemical ppx in setting of anemia Dispo: Discharge Home Total Time Total Time Spent Total Time Spent (In Minutes): >30 Discharge Plan Discharge Items Patient Disposition: Home - Self-Care Reason For Visit: doc ref. low blood count Discharge Diagnosis: Symptomatic anemia requiring blood transfusions Activity: Resume your previous activity Non-emergency contact: Primary Care Provider Call non-emergency contact if: your symptoms worsen, your pain is worsening and your temperature is above 101 Follow-up/Referrals: Fili Salinas [Primary Care Provider] - Diet: Regular Addtl Attending Provider Instructions: Care instructions: You were admitted to [facility] for treatment of symptomatic anemia requiring blood transfusions. As was discussed during your admission we do not have a clear answer as to when the cause of your anemia, prior to dischar ge lab work was obtained to evaluate your anemia. Your outpatient physician should be able to access these records and should review them with you. In the interim you will be started on iron supplementation, this medication is occasionally knows to cause constipation. Should you experience this please use Colace or MiraLAX to relieve constipation symptoms A discharge summary will be sent to your primary care physician to ensure continuity of care. Please bring this discharge summary with you to your next office appointment so that your provider can review it at that time. Follow-up appointments: - Keep all your follow-up appointments as already scheduled. If you cannot make an appointment, notify your provider. - Please call to request a follow-up appointment with your primary care physician within one week of discharge. Please let us know if you are unable to obtain an appointment Medications: - Your medication list has been reviewed and reconciled upon discharge to ensure accuracy and continuity of care. - You are provided with a list of all your current medications at this time. Please review this list closely and make note of any changes. - Please take all of your medications exactly as prescribed. - Tell your primary care provider if you cannot afford your medications. - Call your primary care provider if you are having any side effects or any other problems. - Call your primary care provider before taking any over the counter medications or supplements, including herbals and vitamins, because some of these may i nteract with your current medications and/or make your symptoms worse. Symptoms: Please call your primary care provider for symptoms including, but not limited to: fevers (temperatures greater than 100.4), chills, intractable nausea or vomiting, diarrhea, rash, shortness of breath, bleeding, pain, or if you experience any worsening of the symptoms that brought you to the hospital. For EMERGENCY and VERY SERIOUS health-related issues, such as chest pain, shortness of breath, or sudden onset of the symptoms that brought you to the hospital, you may need to call 911 or go directly to the Emergency Room It has been our privilege to take care of you during your hospital stay. And Above All Else Feel Better! Best Wishes, Darian Gonzalez MD PGY2 Resident, Family & Community Medicine [facility] [place] [id number] [facility], [address] : [address] [place] [address], [place] [address] Pending Studies at Discharge: Yes (Iron labs and reticulocyte count) Stand-Alone Forms: My [facility] Medications and DC Order Prescriptions: New ferrous gluconate 324 mg (38 mg iron) tablet 324 mg PO DAILY 30 Days Qty: 30 RF: 3 Continued latanoprost 0.005 % drops 1 drp OPB DAILY RF: 0 tramadol 50 mg Tablet 50 mg PO Q6H RF: 0 amlodipine-benazepril 5-20 mg Capsule 1 cap PO DAILY RF: 0 naproxen sodium [Aleve] 220 mg Tablet 220 mg PO DAILY RF: 0 zolpidem 10 mg Tablet 10 mg PO HS RF: 0 Daily Multiple For Women 18 mg iron-400 mcg-500 mg Ca Tablet 1 tab PO DAILY RF: 0 Discharge Orders: Discharge Order (Routine); Ordered 06/25/19 Ordered By: Darian Gonzalez Admission Data Admit Date/Time: 06/24/19 11:11 Attending Provider: Jose Cheng Admit Provider: Shari Gonzalez Primary Care Provider: Fili Salinas Other Providers: Dave Clinton ; Shari Gonzalez Resident Activity Tracking Resident Involvement: Resident Care Provided Care Provided: Adult Hospital Medicine
[2019-06-25 16:31] LABS: Hematocrit (blood only) 29.7 % (37-47); Hemoglobin 8.6 g/dL (12.0-16.0); Reticulocyte % 0.8 % (0.5-2.0); Reticulocytes # 0.04 10^6/uL (0.02-0.10)
[2019-06-25 16:54] LABS: Iron 15 mcg/dl (35-150); Transferrin 387 mg/dl (200-360)
--- NOTE | 2019-06-30 14:52 | Coding Query ---
CODING QUERY To promote full compliance with coding requirements relating to patient care, provider participation is requested in all cases of furnace room supervisor uncertainty. Please assist us with the question(s) below: Coding Question(s): Patient admitted with anemia and GI bleed. H/P and GI note state possible etiology of bleed- gastritis and alcohol/NSAID's. eGD revealed erosive gastropathy without bleed. Please document, if known or suspected, the etiology of the bleed and anemia. Thank you ! Jose Boggs [facility] Physician's Response(s): Principal Diagnosis: "that condition established after study, to be chiefly responsible for occasioning the admission of the patient to the hospital for care." Co-Existing Principal Diagnosis: "when two or more diagnoses equally meet the criteria for principal diagnosis as determined by the circumstances of admission, diagnostic work up, and/or therapy provided, and the Alphabetic Index, Tabular List, or another coding guideline does not provide sequencing direction, any one of the diagnoses may be sequenced first." "When the physician has documented what appears to be a current diagnosis in the body of the record, but has not included the diagnosis in the final diagnostic statement, the physician should be asked whether the diagnosis should be added." (Source Coding Clinic 2 QTR90. p3-4) [place]
== END 2019-06-25 17:04 | disposition home or self-care (01) | DRG 812 ==
LOC: ED 09:23 → 2S 11:11 → SUATTDRO 11:11 → 2S 12:37